=== PATIENT | male | born 1970 | race African-American/Black ===

== ENCOUNTER 2017-08-14 02:24 | Emergency (ER) | payer OTHER ==
[~2017-08-14] VITALS: Ht 172.7 cm; Wt 136.1 kg
[2017-08-14 02:25] VITALS: BP 156/96
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
--- NOTE | 2017-08-14 02:46 | NUR ---
PT BROUGHT TO CT.
--- NOTE | 2017-08-14 03:05 | NUR ---
[facility]ADP AT BEDSIDE FOR REPORT.
[2017-08-14] MEDS ORDERED: TRAMADOL HCL 50 MG TABLET PO ONE (03:30)
== END 2017-08-14 03:39 | disposition home or self-care (01) ==
LOC: ER 02:28
DX: M25.511 Pain in right shoulder (principal); M25.551 Pain in right hip; V49.49XA Driver injured in collision with other motor vehicles in traffic accident, initial encounter; Y92.410 Unspecified street and highway as the place of occurrence of the external cause; Y93.89 Activity, other specified; Y99.8 Other external cause status
CPT/HCPCS: 71045; 73030; 73502; 73551; 99284; A4606; Z7610; 73552